=== PATIENT | male | born 1985 | race Caucasian/White ===

== ENCOUNTER 2016-12-27 14:48 | Emergency (ER) | payer BC, OTHER ==
[~2016-12-27] VITALS: Ht 175.3 cm; Wt 74.8 kg
[2016-12-27 14:53] VITALS: BP_SYST 121
--- NOTE | 2016-12-27 15:02 | NUR ---
Patient to ER bed 7 to gown for evaluation. Side rails up. Report given to Isabella DYKES.
--- NOTE | 2016-12-27 15:10 | NUR ---
Sandra Harris WASTE MANAGEMENT ENGINEER at bedside examining pt.
--- NOTE | 2016-12-27 15:11 | NUR ---
Pt AAOx4, able to verbalize needs. Pt states having numbness and tingling in BUE randomly at work and at night. 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 Pt states numbness and tingling lasts for about 20 mins and is resolved by letting arms dangle at side. Pt states he has no symptoms or pain currently. No other complaints or injuries per pt or noted.
[2016-12-27] MEDS ORDERED: DEXAMETHASONE SOD PHOSPHATE 10 MG/ML VIAL IM ONE (15:30)
[2016-12-27] MEDS ORDERED: KETOROLAC TROMETHAMINE 60 MG/2 ML VIAL IM ONE (15:30)
--- NOTE | 2016-12-27 16:00 | NUR ---
Applied velco wrist splints bilaterally. Pulses present bilaterally. Pt tolerated well.
[2016-12-27 16:09] VITALS: BP_SYST 121
--- NOTE | 2016-12-27 16:09 | NUR ---
Patient given written and verbal discharge instructions and verbalizes understanding. ER MD discussed with patient the results and treatment provided. Patient in stable condition. ID arm band removed. Rx of prednisone and motrin given. Patient educated on pain management and to follow up with PMD. Pain Scale 0/10. Opportunity for questions provided and answered.
== END 2016-12-27 16:09 | disposition home or self-care (01) ==
LOC: SED 14:48
DX: G56.03 Carpal tunnel syndrome, bilateral upper limbs (principal); F17.210 Nicotine dependence, cigarettes, uncomplicated; Z71.6 Tobacco abuse counseling
CPT/HCPCS: 29125; 96372; 99284; J1100; J1885

== ENCOUNTER 2020-01-27 15:31 | Emergency (ER) | payer BC ==
[~2020-01-27] VITALS: Ht 175.3 cm; Wt 74.8 kg
--- NOTE | 2020-01-27 16:10 | NUR ---
Patient to [facility] lee for evaluation. Side rails up. Report given to DONIS Segovia.
--- NOTE | 2020-01-27 16:11 | NUR ---
ER AUDIE Aguero examining patient.
[2020-01-27] MEDS ORDERED: IBUPROFEN 800 MG TABLET PO ONE (16:15)
--- NOTE | 2020-01-27 16:15 | NUR ---
PATIENT BROUGHT IN COMPLANING OF PAIN TO LEFT HAND STARTING THIS MORNTIHG. 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 THE WEIGHT FELL AND HIS ARM BECAME STUCK. PAIN 4/10 WITH NO MOTION. NO DEFORMITIES NOTED. RADIAL PULSE PRESENT. CAP REFILL < 3 SECONDS. NO OTHER COMPLAINTS/INJURIES PER PATIENT OR NOTED. WILL CONTINUE TO [facility]
[2020-01-27 16:21] VITALS: BP_SYST 132
[2020-01-27 16:33] VITALS: BP_SYST 126
--- NOTE | 2020-01-27 16:33 | NUR ---
Patient given written and verbal discharge instructions and verbalizes understanding. ER BOTTLING MACHINE OPERATOR discussed with patient the results and treatment provided. Patient in stable condition. ID arm band removed. Rx of MOTRIN given. Patient educated on pain management and to follow up with PMD. Pain Scale 0/10 Opportunity for questions provided and answered. Medication side effect fact sheet provided.
== END 2020-01-27 16:33 | disposition home or self-care (01) ==
LOC: SED 15:31
DX: S69.92XA Unspecified injury of left wrist, hand and finger(s), initial encounter (principal); X50.9XXA Other and unspecified overexertion or strenuous movements or postures, initial encounter; Y93.89 Activity, other specified; Y92.89 Other specified places as the place of occurrence of the external cause; Y99.0 Civilian activity done for income or pay
CPT/HCPCS: 99284

== ENCOUNTER 2021-03-26 13:01 | Emergency (ER) | payer SELFPAY ==
[~2021-03-26] VITALS: Ht 175.3 cm; Wt 70.3 kg
[2021-03-26 13:05] VITALS: BP_SYST 164
[2021-03-26] MEDS ORDERED: ALPRAZolam 0.25 MG TABLET PO ONE (13:30)
[2021-03-26 16:19] LABS: BASOPHILS # (AUTO) 0.1 K/uL (0.0-0.2); BASOPHILS % (AUTO) 0.5 % (0.0-2.0); EOSINOPHILS # (AUTO) 0.1 K/uL (0.0-0.4); EOSINOPHILS % (AUTO) 1.1 % (0.0-4.0); HEMATOCRIT 44.1 % (36-54); HEMOGLOBIN 15.5 g/dL (14.0-18.0); LYMPHOCYTES # (AUTO) 2.4 K/uL (1.0-5.5); LYMPHOCYTES % (AUTO) 23.7 % (20.5-51.5); MEAN CORPUSCULAR HEMOGLOBIN 32 pg (27-31); MEAN CORPUSCULAR HGB CONC 35 % (32-36); MEAN CORPUSCULAR VOLUME 91 fL (79.0-98.0); MONOCYTES # (AUTO) 0.8 K/uL (0.0-1.0); MONOCYTES % (AUTO) 7.9 % (1.7-9.3); NEUTROPHILS # (AUTO) 6.9 K/uL (1.8-7.7); NEUTROPHILS % (AUTO) 66.8 % (40.0-70.0); PLATELET COUNT (AUTO) 294 K/uL (130-430); RED BLOOD CELL COUNT(AUTO) 4.84 MIL/uL (4.2-6.2); RED CELL DISTRIBUTION WIDTH 12.4 % (9.0-15.0); WHITE BLOOD COUNT (AUTO) 10.3 K/uL (4.8-10.8)
[2021-03-26 16:23] LABS: CALCIUM 9.2 mg/dL (8.4-11.0); CREATININE 0.97 mg/dL (0.55-1.30); POTASSIUM 4.9 mmol/L (3.5-5.1)
[2021-03-26 16:29] LABS: ALBUMIN 4.4 g/dL (3.4-4.8); TOTAL BILIRUBIN 0.7 mg/dL (0.0-1.0)
[2021-03-26] MEDS ORDERED: ALPR0.25 PO (16:45)
[2021-03-26 16:50] VITALS: BP_SYST 151
== END 2021-03-26 16:56 | disposition home or self-care (01) ==
LOC: SED 13:01
DX: R07.89 Other chest pain (principal); Z79.899 Other long term (current) drug therapy
CPT/HCPCS: 36415; 71045; 80053; 84484; 85025; 93005; 99285